=== PATIENT | male | born 1970 | race Native Hawaiian/Other Pacific Islander ===

== ENCOUNTER 2020-09-30 13:52 | Outpatient (CLI) | payer OTHER | END 2020-09-30 20:25 | disposition home or self-care (01) | LOC: LAB 13:52 | PROVIDERS: ATTEND Internal Medicine | DX: R53.83 Other fatigue (principal); Z20.828 Contact with and (suspected) exposure to other viral communicable diseases; R09.81 Nasal congestion | CPT/HCPCS: 87635; G2023; U0003 ==

== ENCOUNTER 2020-11-24 13:03 | Outpatient (CLI) | payer OTHER | END 2020-11-24 19:43 | disposition home or self-care (01) | LOC: LABW 13:03 | PROVIDERS: ATTEND Internal Medicine | DX: R05 Cough (principal); J02.9 Acute pharyngitis, unspecified; R50.9 Fever, unspecified; Z11.59 Encounter for screening for other viral diseases | CPT/HCPCS: 87635; G2023; U0003 ==

== ENCOUNTER 2021-05-25 12:07 | Outpatient (CLI) | payer OTHER ==
[2021-05-25 12:33] LABS: PLATELET COUNT 207 K/uL (142-355)
[2021-05-25 12:39] LABS: POTASSIUM 4.7 mmol/L (3.6-5.2)
== END 2021-05-25 22:14 | disposition home or self-care (01) ==
LOC: RAD 12:07
PROVIDERS: ATTEND Nurse Practitioner Family
DX: U07.1 COVID-19 (principal)
CPT/HCPCS: 36415; 80053; 85027

== ENCOUNTER 2022-10-30 16:57 | Emergency (ER) | payer OTHER ==
[~2022-10-30] VITALS: Ht 185.4 cm; Wt 108.9 kg
[2022-10-30 16:57] VITALS: BP 158/89; TEMP 99.4
[2022-10-30 17:37] LABS: PLATELET COUNT 380 K/uL (142-355)
[2022-10-30 17:48] LABS: POTASSIUM 3.6 mmol/L (3.6-5.2)
[2022-10-30 18:06] LABS: PARTIAL THROMBOPLASTIN TIME 24.1 SECONDS (24.5-33.6)
== END 2022-10-30 20:24 | disposition home or self-care (01) ==
LOC: ED 16:57
PROVIDERS: Emergency Medicine
DX: I95.1 Orthostatic hypotension (principal)
CPT/HCPCS: 80053; 84484; 85027; 85379; 85610; 85730; 93005; 96360; 96361; 99284

== ENCOUNTER 2023-04-18 09:47 | Outpatient (CLI) | payer OTHER | END 2023-04-18 19:13 | disposition home or self-care (01) | LOC: RAD 09:47 | PROVIDERS: ATTEND Internal Medicine | DX: Z02.71 Encounter for disability determination (principal) ==